=== PATIENT | female | born 1970 ===

== ENCOUNTER 2023-05-26 16:46 | Emergency (ER) | payer OTHER ==
[~2023-05-26] VITALS: Ht 170.2 cm; Wt 94.1 kg
[~2023-05-26 16:46] MED LIST: ADVAIR 250/28 DISKUS IH; ASPIRIN E.C. 8181 MG PO; CEPHALEXIN250 M1 PO; CYMBALTA 30MG30 MG PO; CYMBALTA 60MG60 MG PO; DORYX PO; DORYX150 MG PO; DOXYCYCLINE 10100 MG PO; DOXYCYCLINE150 M1 PO; FLONASE NASAL S16 GM NS; FLONASE0.05 MG/AC NS; FORTAMET1000 MG PO; FOSAMAX 70MG TA70 MG PO; GLUCOPHAGE500 MG/TAB PO; IMMUNE GLOBULIN SUBCUTANEOUS; INSULIN 70/3100 U/ML IJ; KLONOPIN 0.5MG0.5 MG PO; KLONOPIN0.5 MG PO; LAMOTRIGINE PO; LIPITOR; LIPITOR 40MG TA40 MG PO; LISINOPRIL5 MG PO; METFORMIN ER500 MG PO; MOTRIN 600600 MG/TAB PO; MULTIPLE VITAMI1 TAB PO; NAPROSYN500 MG PO; NORCO 325 MG-51 TAB PO; OMEGA-3 FISH1200 MG PO; OSCAL W/VIT D250 MG PO; PREDNISONE20 MG PO; PRILOSEC 20MG20 MG PO; PRILOTC PO; RT ADVAIR 228 DISKUS IH; RT SPIRIVA18 MCG IH; SEROQUEL XR200 MG PO; SEROQUEL XR50 MG PO; SEROQUEL200 MG PO; SINGULAIR 110 MG/TAB PO; SINGULAIR10 MG PO; SYNTHROID 0.0.025 MG PO; SYNTHROID0.05 MG PO; SYNTHROID0.05 MG/TA PO; TIGAN250 MG PO; TIGAN300 MG PO; TRAZODONE150 MG PO; VYTORIN PO; XOPENEX 0.0.63 MG/3 IH; XOPENEX HF0.045 MG/A IH; ZANTAC 150MG T150 MG PO; ZANTAC150 MG PO; ZINC50 M2 PO; ZYRTEC10 M1 PO; [UNRECOGNIZED DRUG - OTHER]; [UNRECOGNIZED DRUG - OTHER] PO
[2023-05-26 17:19] LABS: COLLECTION METHOD CLEAN CATCH
[2023-05-26 17:49] LABS: URINE APPEARANCE TURBID (CLEAR/HAZY); URINE BLOOD 2+ (NEGATIVE); URINE COLOR YELLOW (YELLOW); URINE GLUCOSE 3+ (NEGATIVE); URINE KETONE NEGATIVE (NEGATIVE); URINE NITRATE NEGATIVE (NEGATIVE); URINE PROTEIN(semi-quant) TRACE (NEGATIVE); URINE UROBILINOGEN 0.2 E.U/dL (0.2-1.0)
[2023-05-26 18:16] LABS: SQUAMOUS EPITHELIAL 20-50 /hpf (0-10); URINE WBC >50 /hpf (0-2)
[2023-05-26 18:18] LABS: BUDDING YEAST PRESENT (NOT PRESENT); URINE BACTERIA MODERATE /hpf (NONE SEEN)
[2023-05-26] MEDS ORDERED: NS 1,000 ML IV ONE (18:30)
[2023-05-26 19:53] LABS: BASO % 0.4 % (0.0-2.0); HEMATOCRIT 42.6 % (37.0-47.0); HEMOGLOBIN 14.5 g/dl (12.5-16.0); LYMPH # 2.9 K/mm3 (1.2-3.4); LYMPH % 33.5 % (20.0-51.0); MEAN CELL VOLUME 92 fl (80.0-100.0); MEAN CORPUSCULAR HEMOGLOBIN 32 pg (27-31); MEAN CORPUSCULAR HGB CONC 34 g/dl (33.0-37.0); MEAN PLATELET VOLUME 11.2 fl (7.4-10.4); MONO # 0.6 K/mm3 (0.1-0.6); MONO % 6.6 % (1.7-9.3); PLATELET COUNT 180 K/mm3 (130-400); RED BLOOD COUNT 4.61 M/mm3 (4.10-5.30); REDCELL DISTRIBUTION WIDTH-CV 12.4 % (11.5-14.5)
[2023-05-26 20:13] LABS: BILIRUBIN,TOTAL 0.4 mg/dL (0.2-1.2); CALCIUM 9.8 mg/dL (8.4-10.2); CREATININE, serum 0.99 mg/dL (0.57-1.11); POTASSIUM 4.1 mEq/L (3.5-4.5)
[2023-05-26] MEDS ORDERED: cefTRIAXone 1 G in Water For Injection,Sterile 10 ML IV ONE (21:00)
[2023-05-26] MEDS ORDERED: Iohexol 300 - 100 ML VIAL IV ONE (21:39)
[2023-05-26] MEDS ORDERED: NS 100 ML IV SCH (21:40)
[2023-05-26] MEDS ORDERED: AMOXICILLIN 8751 TAB PO (22:47)
[2023-05-26] MEDS ORDERED: Home Amoxicillin/Clavulanate K 875 MG #1 TAB/PACK PO ONE (23:00)
[2023-05-26 23:17] VITALS: BP 132/88; PULSE 76; TEMP 98.4
== END 2023-05-26 23:17 | disposition home or self-care (01) ==
LOC: COL.ER 16:46
PROVIDERS: Emergency Medicine; Physician Assistant
DX: N39.0 Urinary tract infection, site not specified (principal); E11.9 Type 2 diabetes mellitus without complications; Z88.2 Allergy status to sulfonamides; Z88.1 Allergy status to other antibiotic agents
CPT/HCPCS: J0696; J7030; Q9967